=== PATIENT | female | born 1975 ===

== ENCOUNTER 2021-11-01 06:15 | Day surgery (SDC) | payer OTHER ==
[~2021-11-01] VITALS: Ht 165.1 cm; Wt 80.7 kg
[~2021-11-01 06:15] MED LIST: ADVIL MIGRAINE200 MG PO
[2021-11-01] MEDS ORDERED: MACROBID 100 M100 MG PO (10:29)
[2021-11-01] MEDS ORDERED: ULTRACET PO (10:30)
== END 2021-11-01 14:00 | disposition home or self-care (01) ==
LOC: CIR.AMB 06:15
PROVIDERS: ATTEND Obstetrics & Gynecology Gynecology
DX: N39.3 Stress incontinence (female) (male) (principal); N36.41 Hypermobility of urethra; Z20.822 Contact with and (suspected) exposure to COVID-19; G43.909 Migraine, unspecified, not intractable, without status migrainosus
CPT/HCPCS: 57288; C1781